=== PATIENT | female | born 1940 | race African-American/Black ===

== ENCOUNTER 2016-12-08 04:30 | Inpatient (IN) | payer OTHER ==
[~2016-12-08] VITALS: Ht 162.6 cm; Wt 52.0 kg
[2016-12-08] MEDS ORDERED: SOD CHLORIDE 0.9% 500 ML IV STA (05:30)
[2016-12-08 05:45] LABS: BASOPHILS % 0.1 % (0.0-2.0); EOSINOPHILS % 0.1 % (0.0-7.0); HEMATOCRIT 37.8 % (37.0-47.0); HEMOGLOBIN 12.1 g/dl (12.0-16.0); LYMPHOCYTES # 0.8 10^3/ul (0.8-2.9); LYMPHOCYTES % 11.4 % (15.0-51.0); MEAN CORPUSCULAR HEMOGLOBIN 28.4 pg (29.0-33.0); MEAN CORPUSCULAR VOLUME 88.7 fl (82.0-101.0); MEAN PLATELET VOLUME 11.5 fl (7.4-10.4); MONOCYTE # 0.2 10^3/ul (0.3-0.9); MONOCYTES % 2.6 % (0.0-11.0); NEUTROPHILS % 85.5 % (39.0-77.0); PLATELET COUNT 230 10^3/UL (140-415); RED BLOOD COUNT 4.26 10^6/ul (4.20-5.40); RED CELL DISTRIBUTION WIDTH 13.2 % (11.5-14.5)
[2016-12-08] MEDS ORDERED: ONDANSETRON 4 MG INJ IV STA (05:50)
[2016-12-08] MEDS ORDERED: morphine 2 MG INJ IV STA (05:50)
[2016-12-08 06:13] LABS: ALBUMIN 3.9 g/dl (3.3-4.9); ALBUMIN/GLOBULIN RATIO 1.14; BILIRUBIN,INDIRECT 0.3 mg/dl (0-1.1); BILIRUBIN,TOTAL 0.3 mg/dl (0.2-1.3); CALCIUM 9.3 mg/dl (8.4-10.2); CREATININE 0.89 mg/dl (0.44-1.00); POTASSIUM 3.2 mmol/L (3.5-5.1); TOTAL PROTEIN 7.3 g/dl (6.1-8.1)
[2016-12-08 06:15] LABS: ADD UMIC YES; UR ASCORBIC ACID NEGATIVE (NEGATIVE); UR BILIRUBIN (Dip) NEGATIVE (NEGATIVE); UR BLOOD (Dip) NEGATIVE (NEGATIVE); UR CLARITY CLEAR (CLEAR); UR COLOR YELLOW (YELLOW); UR GLUCOSE (Dip) 2+ mg/dL (NEGATIVE); UR KETONES (Dip) NEGATIVE (NEGATIVE); UR LEUKOCYTE ESTERASE (Dip) NEGATIVE Leu/ul (NEGATIVE); UR NITRITE (Dip) NEGATIVE (NEGATIVE); UR RBC 0 /HPF (0-5); UR SPECIFIC GRAVITY (Dip) 1.012 (1.003-1.030); UR TOTAL PROTEIN (Dip) 1+ mg/dl (NEGATIVE); UR UROBILINOGEN (Dip) 2+ mg/dL (NEGATIVE)
--- NOTE | 2016-12-08 07:07 | RADRPT ---
PROCEDURE: Chest. CLINICAL INDICATION: Chest pain. TECHNIQUE: Single frontal view of the chest was obtained. COMPARISON: None. FINDINGS: The cardiac silhouette is within normal limits. The aortic arch is calcified. There is no focal co nsolidation, vascular congestion or pleural effusion. There is no pneumothorax. IMPRESSION: No evidence for active cardiopulmonary disease. Aortic atherosclerosis. .Christopher Mejia MD, Date Time Electronically viewed and signed by .Christopher Mejia MD, on 12/08/2016 07:06 .T/
--- NOTE | 2016-12-08 07:12 | RADRPT ---
PROCEDURE: CT Abdomen and pelvis without contrast. CLINICAL INDICATION: Abdominal pain TECHNIQUE: CT scan of the abdomen and pelvis without contrast was performed on a multidetector hig h-resolution CT scan. . Coronal and sagittal reformatted images were obtained from the axial [facility] e images. Standard CT scan of the abdomen pelvis without contrast protocols were performed. The total exam CTDI equals 6.58 mGy and the total exam DLP equals 310.43 mGy-cm. One or more of the following dose reduction techniques were used: - Automated exposure control. - Adjustment of the mA and/or kV according to patient size. Use of iterative reconstruction technique. COMPARISON: None. FINDINGS: The gallbladder is distended and there are numerous small dependent calcified calculi. There is no definite gallbladder wall thickening though there is mild pericholecystic fluid. Rule out acute dana culus cholecystitis. No evidence of biliary ductal dilation. There is a small amount of free fluid anterior to the superior right lobe of the liver and inferior pelvis No other abdominal free fluid. Negative for intra-abdominal abscess, free air or lymphadenopathy. The kidneys are normal in size without calcified renal calculi or hydronephrosis bilaterally. There is a tiny 3 mm rounded area of high attenuation involving the inferior left kidney likely a tiny he morrhagic cyst. No other intra renal masses bilaterally. The urinary bladder is unremarkable. The uterus is anteverted but otherwise unremarkable. No adnexal masses. The spleen is normal in size with focal areas of calcification consistent with old granulomatous dis ease. The liver pancreas adrenal glands are unremarkable. The appendix is not visualized however no CT evidence of appendicitis. The stomach, small bowel and large bowel are unremarkable. 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 N o periaortic fluid collections. The lung bases are unremarkable. There is a tiny fat containing umbilical hernia but no herniated b owel or strangulation. The osseous structures are unremarkable without evidence of acute osseous findings or osteoblastic/o steolytic lesions. IMPRESSION: 1. Distended gallbladder with numerous dependent small calcified calculi and mild to moderate peric holecystic fluid. Rule out acute calculus cholecystitis. No evidence biliary ductal dilation. 2. Small amount of free fluid along the anterior superior right lobe of the liver and in the inferi or pelvis but no evidence of abdominal abscess, free air or lymphadenopathy. 3. No evidence of gastrointestinal disease. 4. No evidence of calcified urinary calculi or obstructive uropathy. RPTAT:AAJJ Mor Mckenna Physician Date Time Electronically viewed and signed by Mor Mckenna Physician on 12/08/2016 07:11 JJ/
[2016-12-08] MEDS ORDERED: POTASSIUM CHLORIDE (SR) 20 MEQ TAB PO STA (07:44)
--- NOTE | 2016-12-08 07:45 | RADRPT ---
PROCEDURE: Abdominal ultrasound, limited. CLINICAL INDICATION: Abdominal pain. TECHNIQUE: Multiple real-time images were acquired of the patient's right upper abdomen utilizing a high resolution transducer. COMPARISON: None FINDINGS: The liver demonstrates normal echogenicity and size measuring 14.4 cm. There is no focal mass or in trahepatic biliary ductal dilatation. The portal vein is patent. The gallbladder is not distended. Multiple small echogenic gallstones are identified. There is mild pericholecystic fluid. There i s gallbladder wall thickening and edema measuring 5.6 mm. The common bile duct measures 4.5 mm in m aximal dimension. The pancreas partially obscured by overlying bowel gas. The right kidney is normal size and echogenicity measuring 9.0 cm. There is no focal renal mass or echogenic calculus identified. There is no obstructive uropathy. IMPRESSION: Cholelithiasis with gallbladder wall thickening and edema and mild pericholecystic fluid. Pancreas partially obscured by overlying bowel gas. .Christopher Mejia MD, Date Time Electronically viewed and signed by .Christopher Mejia MD, MD on 12/08/2016 07:45 .T/
[2016-12-08] MEDS ORDERED: metroNIDAZOLE 500 MG/NS (PMX) 100 ML IVPB ONE (08:00)
[2016-12-08] MEDS ORDERED: CIPROFLOXACIN 400MG/D5W 200 ML IVPB ONE (08:00)
[2016-12-08] MEDS ORDERED: morphine 4 MG/ML VIAL IV STA (08:23)
--- NOTE | 2016-12-08 08:28 | ERA ---
ER Documentation Chief Complaint Date/Time DATE: 12/08/16 TIME: 08:26 Chief Complaint upper abd pain x 1 day HPI Patient is a 76-year-old female with hypertension who presents with upper abdominal pain. She has epigastric pain which radiates to her back. The pain is constant and sharp in nature. It started at midnight. She said that she feels better now. She has no fevers but does have vomiting without diarrhea. She tried Gaviscon and tea. She does not remember the name of her primary doctor. Upon review of old medical records this is the patient's first visit to the ER. ROS All systems reviewed and are negative except as per history of present illness. Allergies Allergies: Coded Allergies: Penicillins (Verified Allergy, Unknown, 12/08/16) PMhx/Soc History of Surgery: Yes (tubal ligation, appendectomy) Hx Respiratory Disorders: Yes (asthma) Hx Cardiac Disorders: Yes (HTN) Hx Miscellaneous Medical Probl: No Hx Alcohol Use: No Hx Substance Use: No Hx Tobacco Use: No Smoking Status: Unknown if ever smoked FmHx Family History: diabetes Physical Exam Vitals Vital Signs Date Time Temp Pulse Resp B/P Pulse Ox O2 Delivery O2 Flow Rate FiO2 12/08/16 04:35 98.3 56 20 178/79 99 Physical Exam Const: Moderate distress secondary to pain Head: Atraumatic Eyes: Normal Conjunctiva ENT: Normal External Ears, Nose and Mouth. Neck: Full range of motion..~ No meningismus. Resp: Clear to auscultation bilaterally Cardio: Regular rate and rhythm, no murmurs Abd: Epigastric tenderness to palpation without rebound or guarding Skin: No petechiae or rashes Back: No midline or flank tenderness Ext: No cyanosis, or edema Neur: Awake and alert Psych: Normal Mood and Affect Result Diagram: 12/08/16 0530 12/08/16 0533 Results 24 hrs Laboratory Tests Test 12/08/16 05:25 12/08/16 05:30 12/08/16 05:33 Urine Color YELLOW Urine Clarity CLEAR Urine pH 7.0 Urine Specific [place] 1.012 Urine Ketones NEGATIVEmg/dL Urine Nitrite NEGATIVEmg/dL Urine Bilirubin NEGATIVEmg/dL Urine Urobilinogen 2+mg/dL Urine Leukocyte Esterase NEGATIVELeu/ul Urine Microscopic RBC 0/HPF Urine Microscopic WBC 1/HPF Urine Hemoglobin NEGATIVEmg/dL Urine Glucose 2+mg/dL Urine Total Protein 1+mg/dl White Blood Count 7.010^3/ul Red Blood Count 4.2610^6/ul Hemoglobin 12.1g/dl Hematocrit 37.8% Mean Corpuscular Volume 88.7fl Mean Corpuscular Hemoglobin 28.4pg Mean Corpuscular Hemoglobin Concent 32.0g/dl Red Cell Distribution Width 13.2% Platelet Count 83514^3/UL Mean Platelet Volume 11.5fl Neutrophils % 85.5% Lymphocytes % 11.4% Monocytes % 2.6% Eosinophils % 0.1% Basophils % 0.1% Nucleated Red Blood Cells % 0.0/100WBC Neutrophils # (Manual) 6.010^3/ul Lymphocytes # 0.810^3/ul Monocytes # 0.210^3/ul Eosinophils # 0.010^3/ul Basophils # 0.010^3/ul Nucleated Red Blood Cells # 0.010^3/ul Sodium Level 141mmol/L Potassium Level 3.2mmol/L Chloride Level 102mmol/L Carbon Dioxide Level 27mmol/L Anion Gap 15 Blood Urea Nitrogen 14mg/dl Creatinine 0.89mg/dl Glucose Level 170mg/dl Calcium Level 9.3mg/dl Total Bilirubin 0.3mg/dl Direct Bilirubin 0.00mg/dl Indirect Bilirubin 0.3mg/dl Aspartate Amino Transf (AST/SGOT) 140IU/L Alanine Aminotransferase (ALT/SGPT) 54IU/L Alkaline Phosphatase 96IU/L Total Protein 7.3g/dl Albumin 3.9g/dl Globulin 3.40g/dl Albumin/Globulin Ratio 1.14 Lipase 125U/L Current Medications Medications (Trade) Dose Ordered Sig/Jeny Route PRN Reason Start Time Stop Time Status Last Admin Dose Admin Sodium Chloride (NS) 500 ml @ 500 mls/hr Q1H STAT IV 12/08/16 05:30 12/08/16 06:29 DC 12/08/16 05:43 Morphine Sulfate (morphine) 2 mg ONCE STAT IV 12/08/16 05:50 12/08/16 05:51 DC 12/08/16 05:58 Ondansetron HCl (Zofran Inj) 4 mg ONCE STAT IV 12/08/16 05:50 12/08/16 05:51 DC 12/08/16 05:58 Potassium Chloride 40 meq 40 meq ONCE STAT PO 12/08/16 07:44 12/08/16 07:52 DC Ciprofloxacin/ Dextrose 200 ml @ 200 mls/hr ONCE ONCE IVPB 12/08/16 08:00 12/08/16 08:59 Metronidazole (Flagyl 500 Mg (Pmx)) 100 ml @ 100 mls/hr ONCE ONCE IVPB 12/08/16 08:00 12/08/16 08:59 Pantoprazole (Protonix Tab) 40 mg DAILY@06 PO 12/08/16 09:00 Enalaprilat (Vasotec Iv) 1.25 mg Q6H PRN IV ELEVATED SYSTOLIC BP 12/08/16 08:30 Morphine Sulfate (morphine) 4 mg ONCE STAT IV 12/08/16 08:23 12/08/16 08:24 DC Procedures/MDM EKG read by me: Rate/Rhythm: Regular rate and rhythm at a rate of 63 Intervals: Normal Impression: No evidence of ischemia or arrhythmia Chest x-ray negative per radiology. CT scan and ultrasound of the abdomen show acute cholecystitis per radiology. Patient is a 76-year-old female presents with abdominal pain. She was found to have gallbladder wall thickening and edema with pericholecystic fluid consistent with acute cholecystitis. Her white blood cell count is normal and liver tests and lipase are normal as well. I believe she has acute cholecystitis. I spoke with Dr. Urbina who is a surgeon on-call who recommends IV antibiotics and admission and will see the patient in consultation. I spoke with Dr. Shoemaker at the patient has [employer] insurance and the patient will be admitted to a medical surgical bed.At this point I doubt sepsis. Departure Diagnosis: Primary Impression: Cholecystitis Additional Impression: Abdominal pain Qualified Code: R10.13 - Epigastric pain Condition: JULEE Hewitt MD Dec 08, 2016 08:28
[2016-12-08] MEDS ORDERED: ENALAPRILAT 1.25 MG INJ IV PRN (08:30)
[2016-12-08] MEDS: PANTOPRAZOLE (EC) 40 MG TAB PO SCH (08:59)
[2016-12-08] MEDS ORDERED: AMLO-147 PO (10:03)
[2016-12-08] MEDS ORDERED: ALBU8.5H3 INH (10:04)
[2016-12-08] MEDS ORDERED: MONT10TA21 PO (10:04)
[2016-12-08] MEDS ORDERED: MAXIDE PO (10:05)
[2016-12-08] MEDS ORDERED: MONTELUKAST 10 MG TAB PO SCH (10:30)
[2016-12-08] MEDS ORDERED: AMLODIPINE 5 MG TAB PO ONE (10:30)
[2016-12-08 10:52] LABS: INR 0.91; PARTIAL THROMBOPLASTIN TIME 21.9 Sec (25.0-35.0); PROTIME 12.2 Sec (12.2-14.2)
[2016-12-08 11:42] VITALS: BP 170/77; RESP 18
--- NOTE | 2016-12-08 11:44 | HP ---
DATE OF ADMISSION: 12/08/2016 CHIEF COMPLAINT: "I have pain in my stomach since last night." HISTORY OF PRESENT ILLNESS: The patient is a pleasant 76-year- old female with a past medical history significant for hypertension and mild COPD, who was in her usual state of health until last night. For dinner, she had a steak and noticed that thereafter that she had pain in her right upper quadrant as well as mid abdomen. She presented to the emergency department approximately 3 in the morning with the aforementioned symptoms and was noted to have mild hyperkalemia as well as a distended gallbladder with numerous dependent small calculi and mild to moderate pericholecystic fluid. Her followup ultrasound revealed cholelithiasis and gallbladder wall thickening and edema with mild pericholecystic fluid. This was consistent with possible early cholecystitis. The patient was given intravenous pain medications as well as potassium replacement (as stated above) and admitted to the medical floor for further evaluation and treatment. ALLERGIES: PENICILLIN. PAST MEDICAL HISTORY: 1. Hypertension. 2. COPD. PAST SURGICAL HISTORY: The patient had an appendectomy in the distant past, as well as a tubal ligation. SOCIAL HISTORY: The patient is a remote tobacco user. She could not quantify the amount of smoking as she quit decades ago. She drinks about 3-4 alcoholic drinks a year and lives with her 2 daughters. FAMILY HISTORY: Essentially noncontributory in this pleasant 76- year-old female. PHYSICAL EXAMINATION: VITAL SIGNS: Her temperature is 98.3, blood pressure initially is 178/79 and now lower to 149/79, pulse rate ranged from 56-65, her respiratory rate was 18, oxygen saturations 100 percent on room air. HEENT: Normocephalic, atraumatic. Her extraocular movements are intact. Pupils are equal, round, reactive to light and accommodation. Oropharynx was mildly dry. NECK: There is no JVD is noted. No thyromegaly was noted. CARDIOVASCULAR: She had a regular rate and rhythm without appreciable murmurs, rubs, or gallops. LUNGS: Clear to auscultation bilaterally without rales, rhonchi, or crackles. ABDOMEN: She had a positive Corrigan's sign. She has mild tenderness to palpation in the epigastric area as well. She had normoactive bowel sounds and no fluid wave is noted. EXTREMITIES: No clubbing, cyanosis, or edema. She had 2+ dorsalis pedis pulses, 2+ radial pulses bilaterally. LABS/TESTS: White count was 7.0, hemoglobin 12.1, hematocrit of 37.8, platelet count of 230,000. Her sodium is 141, potassium 3.2, chloride 102, bicarbonate 27, anion gap 15, BUN 14, creatinine 0.89, glucose 170, calcium 9.3, total bilirubin 0.3, indirect 0.3, AST 142, ALT 54, alkaline phosphatase 76, troponin less than 0.012, total protein 7.3, albumin 3.9, globulin 3.4, lipase was 125. Urinalysis reveals specific gravity of 1.012, pH of 7, 2+ urobilinogen, 2+ glucose and 1+ total protein. She had a negative leukocyte esterase and 1 microscopic white cell. The patient had a chest x-ray which revealed aortic atherosclerosis and no focal vascular congestion or pleural perfusion. No pneumothorax was noted either. Her abdominal CT scans revealed the distended gallbladder with numerous dependent small calcified calculi and [id number] pericholecystic fluid suggestive of acute calculous cholecystitis. Small amount of free fluid in the anterior upper right lobe of the liver and inferior pelvis but no evidence of abdominal abscess or free air or lymphadenopathy. There is no evidence of GI disease. No evidence of calcified urinary calculi or obstructive uropathy. Ultrasound revealed cholelithiasis with gallbladder wall thickening and edema and mild pericholecystic fluid. The pancreas is partially obscured by overlying bowel gas. IMPRESSION: The patient is a very pleasant 76-year-old female who presents emergency department with epigastric and right upper quadrant pain. Her abdominal ultrasound as well as CT scan is suggestive of early acute calculous cholecystitis. Dr. Urbina has been consulted from the emergency department. He will see the patient consultation. The patient has already been given intravenous antibiotics including ciprofloxacin and Flagyl. These medications were chosen because of the patient's penicillin allergy. The patient has also received morphine and her pain is manageable at approximately 2/10. I will keep her NPO, continue antibiotics, start proton pump inhibitor and restart her antihypertensive medications at lower doses to help achieve optimal control. I will discuss the case with Dr. Urbina who will likely take the patient to the operating room. This was discussed in detail with the patient and her 2 daughters at the bedside. They are agreeable to proceed with surgery. Of note, the PT and INR is pending at the time of dictation but it was drawn at the bedside while I was examining the patient. From a cardiovascular standpoint, the patient is at low preoperative risk for adverse cardiac event. She is safe to undergo surgery. Dictated By: Felton Shoemaker MD /candace/basilio /Document#: [id number]
--- NOTE | 2016-12-08 12:24 | CONS ---
Date/Time of Note Date/Time of Note DATE: 12/08/16 TIME: 12:17 Assessment/Plan Assessment/Plan Chief Complaint/Hosp Course 76-year-old female with clinical signs and symptoms of acute cholecystitis. This has been confirmed with both an ultrasound and CT scan. * Continue IV fluid hydration, pain control, broad-spectrum intravenous antibiotics * Definitive treatment will require laparoscopic cholecystectomy; possible open to prevent further sequelae of gallstone disease which include, but are not limited to: Gangrenous cholecystitis, choledocholithiasis, gallstone pancreatitis, ascending cholangitis, etc. * The above was discussed with the patient and her daughter at the bedside along with all risks and benefits of surgical and nonsurgical procedures. They fully understand and are agreeable to surgical intervention. * May have clear liquids tonight. N.p.o. after midnight * Patient has been medically cleared by the primary care team * We will obtain consent and schedule for laparoscopic cholecystectomy; possible open in the a.m. Problems: Consultation Date/Type/Reason Admit Date/Time Dec 08, 2016 at 08:16 Date of Consultation: Dec 08, 2016 Type of Consultation: GENERAL SURGERY Reason for Consultation Acute cholecystitis Hx of Present Illness The patient is a pleasant 76-year-old female with a past medical history of hypertension and mild COPD, who presented to the emergency room complaining of epigastric and right upper quadrant abdominal pain. This occurred last night after dinner. She reports nausea and vomiting. She denies any diarrhea or constipation. She denies any fever/chills. She reports some minor symptoms which were similar in the past which she attributed to gas pain. On arrival to the emergency room ultrasound and CT scans were done which showed findings consistent with acute cholecystitis. Currently she states she feels a little better after the administration of IV narcotic pain medication. A 14 point review of systems was conducted and was negative except for that which is mentioned in HPI Past Medical History Medical History: hypertension, other (Mild COPD) Past Surgical History Past Surgical Hx: appendectomy, other (Tubal ligation) Family History Significant Family History: no pertinent family hx Social History Alcohol Use: occasionally Smoking Status: Former smoker Exam/Review of Systems Vital Signs Vitals Vital Signs Date Time Temp Pulse Resp B/P Pulse Ox O2 Delivery O2 Flow Rate FiO2 12/08/16 11:42 98.3 63 18 170/77 100 12/08/16 11:00 Room Air Exam GENERAL: Awake, alert, oriented x 3. No acute distress. SKIN: No jaundice. HEENT: PERRLA, EOMI, No Scleral Icterus NECK: Supple without JVD CARDIOVASCULAR: S1S2, regular rate and rhythm. No murmurs appreciated. RESPIRATORY: Clear to auscultation bilaterally. ABDOMEN: Soft, bowel sounds present, nondistended, there is epigastric and right upper quadrant tenderness to palpation. There is no evidence of diffuse peritonitis. EXTREMITIES: Free range of motion x 4. No cyanosis, edema, or clubbing. NEUROLOGIC: Cranial nerves II-XII are intact. Sensation is intact grossly. Results Result Diagram: 12/08/16 0530 12/08/16 0533 Results 24 hrs Laboratory Tests Test 12/08/16 05:25 12/08/16 05:30 12/08/16 05:33 12/08/16 09:59 Urine Color YELLOW Urine Clarity CLEAR Urine pH 7.0 Urine Specific [place] 1.012 Urine Ketones NEGATIVE Urine Nitrite NEGATIVE Urine Bilirubin NEGATIVE Urine Urobilinogen 2+ H Urine Leukocyte Esterase NEGATIVE Urine Microscopic RBC 0 Urine Microscopic WBC 1 Urine Hemoglobin NEGATIVE Urine Glucose 2+ H Urine Total Protein 1+ H White Blood Count 7.0 Red Blood Count 4.26 Hemoglobin 12.1 Hematocrit 37.8 Mean Corpuscular Volume 88.7 Mean Corpuscular Hemoglobin 28.4 L Mean Corpuscular Hemoglobin Concent 32.0 Red Cell Distribution Width 13.2 Platelet Count 230 Mean Platelet Volume 11.5 H Neutrophils % 85.5 H Lymphocytes % 11.4 L Monocytes % 2.6 Eosinophils % 0.1 Basophils % 0.1 Nucleated Red Blood Cells % 0.0 Neutrophils # (Manual) 6.0 Lymphocytes # 0.8 Monocytes # 0.2 L Eosinophils # 0.0 Basophils # 0.0 Nucleated Red Blood Cells # 0.0 Sodium Level 141 Potassium Level 3.2 L Chloride Level 102 Carbon Dioxide Level 27 Anion Gap 15 Blood Urea Nitrogen 14 Creatinine 0.89 Glucose Level 170 Calcium Level 9.3 Total Bilirubin 0.3 Direct Bilirubin 0.00 Indirect Bilirubin 0.3 Aspartate Amino Transf (AST/SGOT) 140 H Alanine Aminotransferase (ALT/SGPT) 54 Alkaline Phosphatase 96 Troponin I < 0.012 Total Protein 7.3 Albumin 3.9 Globulin 3.40 H Albumin/Globulin Ratio 1.14 Lipase 125 Prothrombin Time 12.2 Prothrombin Time Ratio 1.0 INR International Normalized Ratio 0.91 Activated Partial Thromboplast Time 21.9 L Medications Medications Current Medications Pantoprazole (Protonix Tab) 40 mg DAILY@06 PO Last administered on 12/08/16t 08: 59; Admin Dose 40 MG; Start 12/08/16 at 09:00 Enalaprilat (Vasotec Iv) 1.25 mg Q6H PRN IV ELEVATED SYSTOLIC BP; Start at 08:30 Montelukast Sodium (Singulair) 10 mg ONCE PO ; Start 12/08/16 at 10:30; Stop 12/08 at 16:00 Procedures Procedures PROCEDURE: CT Abdomen and pelvis without contrast. CLINICAL INDICATION: Abdominal pain TECHNIQUE: CT scan of the abdomen and pelvis without contrast was performed on a multidetector high-resolution CT scan. . Coronal and sagittal reformatted images were obtained from the axial source images. Standard CT scan of the abdomen pelvis without contrast protocols were performed. The total exam CTDI equals 6.58 mGy and the total exam DLP equals 310.43 mGy- cm. One or more of the following dose reduction techniques were used: - Automated exposure control. - Adjustment of the mA and/or kV according to patient size. Use of iterative reconstruction technique. COMPARISON: None. FINDINGS: The gallbladder is distended and there are numerous small dependent calcified calculi. There is no definite gallbladder wall thickening though there is mild pericholecystic fluid. Rule out acute calculus cholecystitis. No evidence of biliary ductal dilation. There is a small amount of free fluid anterior to the superior right lobe of the liver and inferior pelvis No other abdominal free fluid. Negative for intra-abdominal abscess, free air or lymphadenopathy. The kidneys are normal in size without calcified renal calculi or hydronephrosis bilaterally. There is a tiny 3 mm rounded area of high attenuation involving the inferior left kidney likely a tiny hemorrhagic cyst. No other intra renal masses bilaterally. The urinary bladder is unremarkable. The uterus is anteverted but otherwise unremarkable. No adnexal masses. The spleen is normal in size with focal areas of calcification consistent with old granulomatous disease. The liver pancreas adrenal glands are unremarkable. The appendix is not visualized however no CT evidence of appendicitis. The stomach, small bowel and large bowel are unremarkable. 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 No periaortic fluid collections. The lung bases are unremarkable. There is a tiny fat containing umbilical hernia but no herniated bowel or strangulation. The osseous structures are unremarkable without evidence of acute osseous findings or osteoblastic/osteolytic lesions. IMPRESSION: 1. Distended gallbladder with numerous dependent small calcified calculi and mild to moderate pericholecystic fluid. Rule out acute calculus cholecystitis. No evidence biliary ductal dilation. 2. Small amount of free fluid along the anterior superior right lobe of the liver and in the inferior pelvis but no evidence of abdominal abscess, free air or lymphadenopathy. 3. No evidence of gastrointestinal disease. 4. No evidence of calcified urinary calculi or obstructive uropathy. RPTAT:AAJJ Physician Gabo Date Time Electronically viewed and signed by Physician Gabo on 12/08/2016 07:11 BM/ CC: MOOSE CARRASCO MICHAEL A. MD Dec 08, 2016 12:24
[2016-12-08] MEDS: DEXTROSE 5%-0.45% NACL 1,000 ML IV SCH (13:08)
[2016-12-08 13:38] VITALS: Ht 162.6 cm; Wt 52.0 kg
[2016-12-08] MEDS ORDERED: morphine 4 MG/ML VIAL IV PRN (15:00)
[2016-12-08] MEDS ORDERED: morphine 2 MG INJ IV PRN (15:00)
[2016-12-08] MEDS: metroNIDAZOLE 500 MG/NS (PMX) 100 ML IVPB SCH (18:16)
[2016-12-08 19:37] VITALS: BP 148/70; RESP 20
[2016-12-08] MEDS ORDERED: ACETAMINOPHEN 325 MG TAB PO PRN (21:30)
[2016-12-08] MEDS: CIPROFLOXACIN 400MG/D5W 200 ML IVPB SCH (21:32)
[2016-12-08] MEDS ORDERED: ONDANSETRON 4 MG INJ IV PRN (23:00)
[2016-12-09] VITALS (15 sets, daily range): BP systolic 108–173; BP diastolic 57–93; PULSE 55–64; RESP 16–22
[2016-12-09] MEDS: DEXTROSE 5%-0.45% NACL 1,000 ML IV SCH ×3 (01:50→15:20)
[2016-12-09] MEDS: metroNIDAZOLE 500 MG/NS (PMX) 100 ML IVPB SCH ×4 (02:37→21:11)
[2016-12-09] MEDS: PANTOPRAZOLE (EC) 40 MG TAB PO SCH (05:37)
[2016-12-09] MEDS: KETOROLAC 15 MG INJ IV PRN (06:00)
[2016-12-09] MEDS: CIPROFLOXACIN 400MG/D5W 200 ML IVPB SCH ×2 (08:58→13:30)
--- NOTE | 2016-12-09 10:48 | HPN ---
Date/Time of Note Date/Time of Note DATE: 12/09/16 TIME: 10:42 Interval H&P Admission Note Pt. seen H&P reviewed: No system changes CINDY CIFUENTES MD Dec 09, 2016 10:48
[2016-12-09] MEDS ORDERED: BUPIVACAINE 0.25% (MPF) 30 ML INJ ONE (11:19)
[2016-12-09] MEDS ORDERED: PROPOFOL 20 ML ONE (11:42)
[2016-12-09] MEDS ORDERED: ROCURONIUM 50 MG INJ ONE (11:42)
[2016-12-09] MEDS ORDERED: MIDAZOLAM 1 MG/ML 2 ML INJ ONE (11:42)
[2016-12-09] MEDS ORDERED: METOCLOPRAMIDE 10 MG INJ ONE (11:43)
[2016-12-09] MEDS ORDERED: ROPIVACAINE 0.5 % 30 ML VIAL ONE (11:44)
[2016-12-09] MEDS ORDERED: DEXAMETHASONE 4 MG/ML 1 ML INJ ONE (12:13)
[2016-12-09] MEDS ORDERED: ALBUTEROL 0.083% (NEB) 2.5 MG/3 ML AMP HHN PRN (12:30)
[2016-12-09] MEDS ORDERED: DIPHENHYDRAMINE 50 MG INJ IV PRN (12:30)
[2016-12-09] MEDS ORDERED: LABETALOL HCL 20MG INJ IV PRN (12:30)
[2016-12-09] MEDS ORDERED: ONDANSETRON 4 MG INJ IV PRN ×2 (12:30→13:30)
[2016-12-09] MEDS ORDERED: METOCLOPRAMIDE 10 MG INJ IV PRN (12:30)
[2016-12-09] MEDS ORDERED: MEPERIDINE 25 MG INJ IV PRN (12:30)
[2016-12-09] MEDS ORDERED: hydrALAzine 20 MG INJ IV PRN (12:30)
[2016-12-09] MEDS ORDERED: HYDROmorphONE (0.2 MG/ML) 10ML SYG IV PRN ×3 (12:30)
[2016-12-09] MEDS ORDERED: NEOSTIGMINE 3 MG/3 ML SYRINGE ONE (12:48)
[2016-12-09] MEDS ORDERED: GLYCOPYRROLATE 0.4 MG INJ ONE (12:48)
--- NOTE | 2016-12-09 13:17 | OPR ---
Date/Time of Note Date/Time of Note DATE: 12/09/16 TIME: 13:10 Operative Report Procedure Date: Dec 09, 2016 Preoperative Diagnosis Acute cholecystitis Postoperative Diagnosis Acute cholecystitis Operation Performed Laparoscopic Cholecystectomy Surgeon: CINDY CIFUENTES MD Anesthesia Type: general Anesthesiologist: HENRY WILLS MD Estimated Blood Loss: minimal Transfusion Required: no Specimens Gallbladder Grafts/Implants: none Complications: no Pt Condition Post Procedure: stable Disposition: PACU Indications The patient is a 76-year-old female who presented with right upper quadrant abdominal pain. The patient had clinical signs and symptoms of acute cholecystitis which was confirmed via an ultrasound which showed gallstones, gallbladder wall thickening and pericholecystic fluid. She was admitted, started on broad-spectrum intravenous antibiotics, IV fluids and pain control. The patient was scheduled for laparoscopic cholecystectomy; possible open as medical necessity and definitive treatment to prevent further sequelae of gallstone disease which include but are not limited to: Gangrenous cholecystitis , choledocholithiasis, gallstone pancreatitis, ascending cholangitis, etc. All risks and benefits of the procedure including but not limited to: Wound infection, excessive bleeding, common bile duct injury, postoperative biliary leak, retained common bile duct stone, injury to intra-abdominal organs, conversion to open procedure, possible need for subsequent surgeries, etc. were all explained to the patient in full detail. She fully understood and wished to proceed with the procedure. Informed consent was therefore obtained. Operative\Procedure Findings Edematous gallbladder consistent with acute cholecystitis Procedure Description The patient was brought to the operating room and placed supine on the operating table. Bilateral sequential compression devices were placed on both lower extremities. The patient had been maintained on broad-spectrum intravenous antibiotics while an inpatient on the floor. After the induction of smooth general endotracheal anesthesia the patient's abdomen was prepped and draped in the standard surgical fashion. The patient had a large lower midline incision as well as a right lower quadrant incision from prior surgeries. After performance of the surgical timeout a 12 mm incision was made inferior to the umbilicus. The incision was carried down through the skin and into the subcutaneous tissues to the level of the anterior rectus fascia using blunt dissection. The anterior rectus fascia was then grasped between 2 Jeronimo clamps and incised using an 11 blade scalpel. Stay sutures of 0 Vicryl were placed on either side of the fascia. Peritoneal cavity was entered atraumatically. Blunt finger sweep was done and there were no adhesions to the underside of the abdominal wall in the area of the incision. A 12 mm port was then placed through the incision and pneumoperitoneum was obtained. A 5 mm laparoscope was placed through the port site. Three further working ports were then placed a 12 mm port in the sub-xiphoid region and two 5 mm ports in the right upper quadrant. All port sites were anesthetized with 0.25% Marcaine prior to incision. Diagnostic laparoscopy showed there to be some omental adhesions to the lower midline incision in the anterior abdominal wall. These were away from our operative field. Using atraumatic graspers the gallbladder was grasped and retracted superiorly and laterally exposing the area of Markham' s pouch. Gallbladder appeared edematous. Dissection was begun in this area using a combination of blunt dissection and hook electrocautery. The cystic artery was identified coursing anterior to the cystic duct. It was dissected free of surrounding tissues and clipped proximally and distally and transected using EndoShears. The cystic duct was identified as it entered straight into the neck of the gallbladder. It was dissected free of surrounding tissues and clipped proximally and distally x 3 and transected using EndoShears. The gallbladder was then dissected off the liver bed using electrocautery. The gallbladder was edematous in its attachment to the liver bed. Once completely free the gallbladder was placed in an Endo Catch bag and withdrawn through the subxiphoid port site and passed off the field as specimen. Hemostasis was then inspected for and noted to be total. The abdomen was then irrigated with several liters of warm normal saline and the irrigant returned crystal clear. The fascia of the subxiphoid port site was then reapproximated using an endo- close device and 0 Vicryl suture. Pneumoperitoneum was then released and all remaining trochars were withdrawn under direct vision. The fascia of the umbilical port site was reapproximated using 0 Vicryl sutures in figure-of- eight fashion. The stay sutures were tied on top of the fascial closure. The subcutaneous tissues were irrigated with more warm normal saline. The skin was then reapproximated using 4-0 Monocryl sutures in subcuticular fashion. The incisions were cleaned and Dermabond was applied to the incisions and the patient was awoken from anesthesia and transported to the recovery room in stable condition. All counts were correct at the end of the case x 2. CINDY CIFUENTES MD Dec 09, 2016 13:17
[2016-12-09] MEDS ORDERED: HYDROCODONE/APAP (5/325) TAB PO PRN (13:30)
[2016-12-09] MEDS ORDERED: ACETAMINOPHEN 1000MG/100ML IV 100 ML IVPB PRN (13:30)
[2016-12-09] MEDS ORDERED: ACETAMINOPHEN 325 MG TAB PO PRN (13:30)
--- NOTE | 2016-12-09 14:30 | PN ---
Date/Time of Note Date/Time of Note DATE: 12/09/16 TIME: 14:21 Assessment/Plan VTE Prophylaxis VTE Prophylaxis Intervention: SCD's Lines/Catheters IV Catheter Type (from Nrs): Peripheral IV Assessment/Plan Assessment/Plan 76-year-old female with: 1. Acute cholecystitis: Status post laparoscopy cholecystectomy this morning, POD#[address] Urbina patient did well. Will resume diet once she gets to the floor. Continue IV fluids until tolerating diet well. Probable discharge planning on postoperative day #1 2. Hypertension: Continue hydralazine as needed until able to resume p.o. meds. 3. COPD: Nebulizer treatment as needed, resume Singulair. Prophylaxis: Protonix for GI prophylaxis, SCDs for DVT prophylaxis Disposition: Hopefully discharge planning tomorrow on postoperative day #1. Subjective 24 Hr Interval Summary Free Text/Dictation Patient currently in recovery, status post a laparoscopic cholecystectomy this morning. She will be going to the floor shortly. Exam/Review of Systems Vital Signs Vitals Vital Signs Date Time Temp Pulse Resp B/P Pulse Ox O2 Delivery O2 Flow Rate FiO2 12/09/16 13:58 60 20 114/65 100 Nasal Cannula 2.0 12/09/16 13:21 97.9 Intake and Output 12/08/16 12/08/16 12/09/16 15:00 23:00 07:00 Intake Total 1175 ml 525 ml Output Total 900 ml Balance 1175 ml -375 ml Exam Unable to perform physical as patient still in recovery currently. Results Result Diagram: 12/08/16 0530 12/08/16 0533 Medications Medications Current Medications Pantoprazole (Protonix Tab) 40 mg DAILY@06 PO Last administered on 12/08/16 08: 59; Admin Dose 40 MG; Start 12/08/16 at 09:00 Enalaprilat 1.25 mg 1.25 mg Q6H PRN IV ELEVATED SYSTOLIC BP; Start 12/08/16 at 08:30 Dextrose/Sodium Chloride (D5-1/2ns) 1,000 ml @ 75 mls/hr [id number] IV Last administered on 12/09/16 10:54; Admin Dose 75 MLS/HR; Start 12/08/16 at 12:30 Morphine Sulfate (morphine) 2 mg Q2H PRN IV MILD; Start 12/08/16 at 15:00 Morphine Sulfate (morphine) 3 mg Q3H PRN IV MODERATE PAIN; Start 12/08/16 at 15: 00 Ketorolac Tromethamine 15 mg 15 mg Q6H PRN IV PAIN Last administered on t 06:00; Admin Dose 15 MG; Start 12/08/16 at 21:30; Stop 12/11/16 at 21:29 Metronidazole 100 ml @ 100 mls/hr Q8H IVPB ; Start 12/09/16 at 13:30; Stop at 13:29 Ciprofloxacin/ Dextrose (Cipro Ivpb) 200 ml @ 200 mls/hr Q12H IVPB ; Start 12/09 at 13:30; Stop 12/10/16 at 13:29 Acetaminophen/ Hydrocodone Bitart ([place] (5/325)) 1 tab Q6H PRN PO PAIN LEVEL 6 -10; Start 12/09/16 at 13:30 Acetaminophen (Tylenol Tab) 650 mg Q6H PRN PO PAIN AND OR ELEVATED TEMP; Start 12/09/16 at 13:30 Ondansetron HCl (Zofran Inj) 4 mg Q6H PRN IV NAUSEA AND/OR VOMITING; Start 12/09 at 13:30 Docusate Sodium 100 mg 100 mg BID PO ; Start 12/09/16 at 21:00 Acetaminophen (Ofirmev 1000mg/ 100ml Iv) 100 ml @ 400 mls/hr Q6H PRN IVPB PAIN ; Start 12/09/16 at 13:30 ALEXSANDER BLUE Dec 09, 2016 14:30
[2016-12-09 16:42] LABS: CALCIUM 8.5 mg/dl (8.4-10.2); CREATININE 1.07 mg/dl (0.44-1.00); POTASSIUM 3.3 mmol/L (3.5-5.1)
[2016-12-09] MEDS: DOCUSATE SODIUM 100 MG CAP PO SCH (20:22)
[2016-12-09] MEDS: MONTELUKAST 10 MG TAB PO SCH (20:22)
[2016-12-10] VITALS (10 sets, daily range): BP systolic 145–172; BP diastolic 68–93; PULSE 69–96; RESP 16–19
[2016-12-10] MEDS: CIPROFLOXACIN 400MG/D5W 200 ML IVPB SCH (01:36)
[2016-12-10] MEDS: KETOROLAC 15 MG INJ IV PRN ×2 (02:20→18:26)
[2016-12-10] MEDS: PANTOPRAZOLE (EC) 40 MG TAB PO SCH (05:12)
[2016-12-10] MEDS: metroNIDAZOLE 500 MG/NS (PMX) 100 ML IVPB SCH (05:12)
[2016-12-10 05:39] LABS: BASOPHILS % 0.1 % (0.0-2.0); EOSINOPHILS % 0.1 % (0.0-7.0); HEMATOCRIT 31.5 % (37.0-47.0); HEMOGLOBIN 10.5 g/dl (12.0-16.0); LYMPHOCYTES # 1.1 10^3/ul (0.8-2.9); LYMPHOCYTES % 14.8 % (15.0-51.0); MEAN CORPUSCULAR HEMOGLOBIN 30.2 pg (29.0-33.0); MEAN CORPUSCULAR HGB CONC 33.3 g/dl (32.0-37.0); MEAN CORPUSCULAR VOLUME 90.5 fl (82.0-101.0); MEAN PLATELET VOLUME 12.2 fl (7.4-10.4); MONOCYTE # 0.6 10^3/ul (0.3-0.9); MONOCYTES % 7.7 % (0.0-11.0); NEUTROPHILS % 76.9 % (39.0-77.0); RED BLOOD COUNT 3.48 10^6/ul (4.20-5.40); RED CELL DISTRIBUTION WIDTH 13.7 % (11.5-14.5); WHITE BLOOD COUNT 7.6 10^3/ul (4.8-10.8)
[2016-12-10 05:47] LABS: PLATELET COUNT 136 10^3/UL (140-415); POSITIVE DIFF @See below
[2016-12-10 06:09] LABS: ALBUMIN/GLOBULIN RATIO 1.03; BILIRUBIN,INDIRECT 0.4 mg/dl (0-1.1); BILIRUBIN,TOTAL 0.4 mg/dl (0.2-1.3); POTASSIUM 3.4 mmol/L (3.5-5.1); TOTAL PROTEIN 5.9 g/dl (6.1-8.1)
[2016-12-10] MEDS: DEXTROSE 5%-0.45% NACL 1,000 ML IV SCH (06:42)
[2016-12-10] MEDS: DOCUSATE SODIUM 100 MG CAP PO SCH ×2 (08:48→22:16)
[2016-12-10] MEDS ORDERED: AMLODIPINE 10 MG TAB PO SCH ×2 (09:00→13:00)
[2016-12-10] MEDS ORDERED: POTASSIUM CHLORIDE (SR) 20 MEQ TAB PO STA (09:55)
--- NOTE | 2016-12-10 12:17 | PN ---
Date/Time of Note Date/Time of Note DATE: 12/10/16 TIME: 12:15 Assessment/Plan Lines/Catheters IV Catheter Type (from Nrsg): Peripheral IV Assessment/Plan Assessment/Plan 76-year-old female s/p Laparoscopic cholecystectomy POD#1 * Surgically stable for discharge home when medically cleared * Follow up in office in 2 weeks Subjective 24 Hr Interval Summary Doing well. Pain is controlled. Tolerating diet. Ambulating. Afebrile. Exam/Review of Systems Vital Signs Vitals Vital Signs Date Time Temp Pulse Resp B/P Pulse Ox O2 Delivery O2 Flow Rate FiO2 12/10/16 07:36 99.7 71 16 154/75 97 12/09/16 14:15 Nasal Cannula 2.0 Intake and Output 12/09/16 12/09/16 12/10/16 15:00 23:00 07:00 Intake Total 1400 ml 475 ml 1165 ml Output Total 10 ml 1500 ml Balance 1390 ml 475 ml -335 ml Exam Free Text/Dictation GENERAL: Awake, alert, oriented x 3. No acute distress. SKIN: No jaundice. HEENT: PERRLA, EOMI, No Scleral Icterus CARDIOVASCULAR: S1S2, regular rate and rhythm. No murmurs appreciated. RESPIRATORY: Clear to auscultation bilaterally. ABDOMEN: Soft, bowel sounds present, nondistended, non-tender to palpation. INCISIONS: clean, dry, intact. EXTREMITIES: Free range of motion x 4. No cyanosis, edema, or clubbing. Results Result Diagram: 12/10/16 0501 12/10/16 0501 CINDY CIFUENTES MD Dec 10, 2016 12:17
--- NOTE | 2016-12-10 12:31 | PN ---
Date/Time of Note Date/Time of Note DATE: 12/10/16 TIME: 12:18 Assessment/Plan VTE Prophylaxis VTE Prophylaxis Intervention: SCD's Lines/Catheters IV Catheter Type (from Nrsg): Peripheral IV Assessment/Plan Assessment/Plan 76-year-old female with: 1. Acute cholecystitis: Status post laparoscopy cholecystectomy this morning, POD#[address] Urbina, patient doing well Discharge home today, follow up with PC within 1 week and Gen Surg in 1 to 2 weeks D/c IVF DC home today, no need for antibiotics, will provide with pain medication and bowel regimen. 2. Hypertension: Resume home medications. 3. COPD: Nebulizer treatment as needed, resume Singulair. Prophylaxis: Protonix for GI prophylaxis, SCDs for DVT prophylaxis Disposition: Discharge home today after magnesium given. Follow-up with primary care physician within 1 week, follow-up with general surgery Dr. Urbina in 1-2 weeks. Subjective 24 Hr Interval Summary Free Text/Dictation Patient doing okay, passing gas, ambulating, actually no pain. White blood cell count within normal. Tolerating p.o. Discussed with general surgery okay to discharge home with outpatient follow-up in 1-2 weeks. Exam/Review of Systems Vital Signs Vitals Vital Signs Date Time Temp Pulse Resp B/P Pulse Ox O2 Delivery O2 Flow Rate FiO2 12/10/16 07:36 99.7 71 16 154/75 97 12/09/16 14:15 Nasal Cannula 2.0 Intake and Output 12/09/16 12/09/16 12/10/16 15:00 23:00 07:00 Intake Total 1400 ml 475 ml 1165 ml Output Total 10 ml 1500 ml Balance 1390 ml 475 ml -335 ml Exam Constitutional: alert, oriented, well developed Respiratory: clear to auscultation, normal air movement Cardiovascular: nl pulses, regular rate and rhythm Gastrointestinal: non-tender, soft Musculoskeletal: nl extremities to inspection, nl gait and stance, other (No edema, clubbing or cyanosis) Extremities: normal pulses Neurological: SUPERINTENDENT QUARRY II-XII intact, nl mental status, nl speech, nl strength Results Result Diagram: 12/10/16 0501 12/10/16 0501 Results 24 hrs Laboratory Tests Test 12/09/16 16:08 12/10/16 05:01 Sodium Level 138 137 Potassium Level 3.3 L 3.4 L Chloride Level 105 105 Carbon Dioxide Level 25 27 Anion Gap 11 8 Blood Urea Nitrogen 9 8 Creatinine 1.07 H 1.00 Glucose Level 170 115 # Calcium Level 8.5 9.0 White Blood Count 7.6 Red Blood Count 3.48 L Hemoglobin 10.5 L Hematocrit 31.5 L Mean Corpuscular Volume 90.5 Mean Corpuscular Hemoglobin 30.2 Mean Corpuscular Hemoglobin Concent 33.3 Red Cell Distribution Width 13.7 Platelet Count 136 #L Mean Platelet Volume 12.2 H Neutrophils % 76.9 Lymphocytes % 14.8 L Monocytes % 7.7 Eosinophils % 0.1 Basophils % 0.1 Nucleated Red Blood Cells % 0.0 Neutrophils # (Manual) 5.9 Lymphocytes # 1.1 Monocytes # 0.6 Eosinophils # 0.0 Basophils # 0.0 Nucleated Red Blood Cells # 0.0 Magnesium Level 1.6 L Total Bilirubin 0.4 Direct Bilirubin 0.00 Indirect Bilirubin 0.4 Aspartate Amino Transf (AST/SGOT) 82 H Alanine Aminotransferase (ALT/SGPT) 138 H Alkaline Phosphatase 121 Total Protein 5.9 #L Albumin 3.0 L Globulin 2.90 Albumin/Globulin Ratio 1.03 Medications Medications Current Medications Pantoprazole (Protonix Tab) 40 mg DAILY@06 PO Last administered on 12/10/16 05: 12; Admin Dose 40 MG; Start 12/08/16 at 09:00 Enalaprilat 1.25 mg 1.25 mg Q6H PRN IV ELEVATED SYSTOLIC BP; Start 12/08/16 at 08:30 Dextrose/Sodium Chloride (D5-1/2ns) 1,000 ml @ 75 mls/hr [id number] IV Last administered on 12/10/16 06:42; Admin Dose 75 MLS/HR; Start 12/08/16 at 12:30 Morphine Sulfate (morphine) 2 mg Q2H PRN IV MILD Last administered on 12/09/16 15:14; Admin Dose 2 MG; Start 12/08/16 at 15:00 Morphine Sulfate (morphine) 3 mg Q3H PRN IV MODERATE PAIN; Start 12/08/16 at 15: 00 Ketorolac Tromethamine 15 mg 15 mg Q6H PRN IV PAIN Last administered on 02:20; Admin Dose 15 MG; Start 12/08/16 at 21:30; Stop 12/11/16 at 21:29 Metronidazole 100 ml @ 100 mls/hr Q8H IVPB Last administered on 12/10/16 05:12 ; Admin Dose 100 MLS/HR; Start 12/09/16 at 13:30; Stop 12/10/16 at 13:29 Ciprofloxacin/ Dextrose (Cipro Ivpb) 200 ml @ 200 mls/hr Q12H IVPB Last administered on 12/10/16 01:36; Admin Dose 200 MLS/HR; Start 12/09/16 at 13:30; Stop 12/10/16 at 13:29 Acetaminophen/ Hydrocodone Bitart ([place] (5/325)) 1 tab Q6H PRN PO PAIN LEVEL 6 -10; Start 12/09/16 at 13:30 Acetaminophen (Tylenol Tab) 650 mg Q6H PRN PO PAIN AND OR ELEVATED TEMP Last administered on 12/09/16 22:31; Admin Dose 650 MG; Start 12/09/16 at 13:30 Ondansetron HCl (Zofran Inj) 4 mg Q6H PRN IV NAUSEA AND/OR VOMITING; Start 12/09 at 13:30 Docusate Sodium 100 mg 100 mg BID PO Last administered on 12/10/16 08:48; Admin Dose 100 MG; Start 12/09/16 at 21:00 Acetaminophen (Ofirmev 1000mg/ 100ml Iv) 100 ml @ 400 mls/hr Q6H PRN IVPB PAIN ; Start 12/09/16 at 13:30 Amlodipine Besylate (Norvasc) 10 mg DAILY PO Last administered on 12/10/16 08: 49; Admin Dose 10 MG; Start 12/10/16 at 09:00 Montelukast Sodium 10 mg 10 mg QHS PO Last administered on 12/09/16 20:22; Admin Dose 10 MG; Start 12/09/16 at 21:00 Magnesium Sulfate/ Sodium Chloride (Magnesium Sulfate/NS) 106 ml @ 35.333 mls/ hr ONCE ONCE IVPB ; Start 12/10/16 at 13:00; Stop 12/10/16 at 15:59 ALEXSANDER BLUE Dec 10, 2016 12:31
--- NOTE | 2016-12-10 12:32 | PDOCDIS ---
Discharge Instructions CONDITION Patient Condition: Stable HOME CARE INSTRUCTIONS: Diet Instructions: 2gm Na ACTIVITY: Activity Restrictions: Slowly Increase Activity Avoid heavy lifting Do not operate Machinery Avoid Heavy Housework FOLLOW UP/APPOINTMENTS Follow-up Plan Follow-up with primary care physician in 1 week Follow-up with Dr. Urbina in 1-2 weeks ALEXSANDER BLUE Dec 10, 2016 12:32
[2016-12-10] MEDS ORDERED: DOCU-216 PO (12:33)
[2016-12-10] MEDS ORDERED: HYDR-3498 PO (12:33)
[2016-12-10] MEDS ORDERED: MAGNESIUM SULFATE 3 GM in SOD CHLORIDE 0.9% 100 ML IVPB ONE (13:00)
[2016-12-10] MEDS: MONTELUKAST 10 MG TAB PO SCH (22:15)
--- NOTE | 2016-12-12 15:40 | DS ---
Date/Time of Note Date/Time of Note DATE: 12/12/16 TIME: 15:37 Discharge Summary Admission/Discharge Info Admit Date/Time Dec 08, 2016 at 08:16 Discharge Date/Time Dec 10, 2016 at 22:30 Discharge Diagnosis Acute cholecystitis Hypertension Patient Condition: Good Consults General surgery, Dr. Urbina Procedures Laparoscopic cholecystectomy Hx of Present Illness 76-year-old female who presented with abdominal pain, on CAT scan of the abdomen and pelvis was diagnosed with acute cholecystitis, she also has hypertension. She was evaluated and cleared by internal medicine for surgical intervention. Dr. Urbina from general surgery was consulted. Hospital Course Patient underwent laparoscopy cholecystectomy on 12/09/16. She did well postoperatively, she was tolerating p.o. by postoperative day #1, she denies any pain, she was ambulating and passing gas. She was therefore discharged home. Home Meds Active Scripts Hydrocodone Bit-Acetaminophen (Hydrocodone Bit-APAP) 5-325MG Tablet, 1 TAB PO Q6H Y for PAIN for 30 Days, TAB Prov:ALEXSANDER BLUE 12/10/16 Docusate Sodium (Dok) 100 Mg Capsule, 100 MG PO BID for 30 Days, CAP Prov:ALEXSANDER BLUE 12/10/16 Reported Medications Triamterene/Hctz (Maxzide (75-50)*) 1 Tab Tablet, 1 TAB PO DAILY, TAB 12/08/16 Albuterol Sulfate* (Proair HFA*) 8.5 Gm Hfa.aer.ad, 2 PUFF INH Q6H Y for WHEEZING AND SOB, #1 INHALER 12/08/16 Montelukast Sodium* (Singulair*) 10 Mg Tablet, 10 MG PO QHS, #30 TAB 12/08/16 Amlodipine Besylate* (Amlodipine Besylate*) 10 Mg Tablet, 10 MG PO DAILY, #30 TAB 12/08/16 Follow-up Plan Follow-up with primary care physician within 1 week Follow up with Dr. Urbina in 1 week after discharge Primary Care Provider Time spent on discharge: > 30 minutes ALEXSANDER BLUE Dec 12, 2016 15:40
== END 2016-12-10 22:30 | disposition home or self-care (01) | DRG 419 ==
LOC: E/R 04:30 → MS2 08:16
PROVIDERS: ADMIT Internal Medicine; ATTEND Internal Medicine
PROC: 0FT44ZZ Resection of Gallbladder, Percutaneous Endoscopic Approach (ICD-10-PCS; principal; 2016-12-09 13:00)
DX: K81.0 Acute cholecystitis (principal); J44.9 Chronic obstructive pulmonary disease, unspecified; I10 Essential (primary) hypertension; Z88.0 Allergy status to penicillin; Z98.51 Tubal ligation status; Z87.891 Personal history of nicotine dependence
CPT/HCPCS: 36415; 71010; 74176; 76705; 80048; 80053; 81001; 83690; 83735; 84484; 85025; 85610; 85730; 88304; 93005; 96374; 96375; 96376; J0360; J0744; J1100; J1885; J2250; J2270; J2405; J2710; J2765; J2795; J3475; J7040; J7042